=== PATIENT | male | born 1960 | race Caucasian/White ===

== ENCOUNTER 2025-03-30 11:29 | Day surgery (SDC) | payer OTHER ==
[2025-03-30] VITALS (8 sets, daily range): BP systolic 129–163; BP diastolic 74–101
[~2025-03-30] VITALS: Ht 180.3 cm; Wt 130.9 kg
[2025-03-30] MEDS ORDERED: INSULANI SC (12:40)
[2025-03-30] MEDS ORDERED: HUMALOG100 UNIT/1 SC (12:40)
[2025-03-30] MEDS ORDERED: EpiNEPhrine 1 MG/1 ML 1ML Vial ONE (12:41)
[2025-03-30] MEDS ORDERED: Phenylephrine 0.5% Nasal Spray/Drops 15 ML ONE (12:41)
[2025-03-30] MEDS ORDERED: Lidocaine 2% Jelly Uro-Jet ONE (12:41)
[2025-03-30] MEDS ORDERED: ALBU90OI INH (12:42)
[2025-03-30] MEDS ORDERED: AIRDUO RESPICL1 EAC1 INH (12:44)
[2025-03-30] MEDS ORDERED: OMEP20ER PO (12:44)
[2025-03-30] MEDS ORDERED: OZEMPIC0.25 MG/02 SC (12:44)
--- NOTE | 2025-03-30 13:40 | NUR ---
03/30/25 1339 Jaye Gallagher MONITOR INTACT WITH CONTINUOUS PULSE OXIMETRY, CONTINUOUS END TITAL CO2, 3-LEAD EKG AND INTERMITTENT BLOOD PRESSURE.
[2025-03-30] MEDS ORDERED: Ipratropium/Albuterol SulF 2.5-0.5MG/3 ML Amp ONE (14:27)
--- NOTE | 2025-03-30 17:48 | NUR ---
1420: TO STEP POST BRONCH. PINK TINGED PRODUCTIVE COUGH, SPO2 92-96% ON 3LO2 VIA NC. DUONED BORDERED PER DR. MCPHERSON. PT TO REMAIN IN STEP FOR 2 HOURS POST OP. REPORTS SCRATCHY THROAT AND BASELINE RESPIRATORY STATUS. 1530: TITRATED O2 TO 2LO2. ERVIN WELL. CONT TO HAVE PINK TINGED SPUTUM, IMPROVING. 1615: DC'D IV INTACT. DRESSED AT BEDSIDE WITH SPOUSE. DC'D IV INTACT. DC'D VIA WC TO PRIVATE CAR WITH VEHICLE BODY MAKER. VERBALIZED UNDERSTANDING OF DC INSTRUCTIONS/FOLLOW UP/MEDICATIONS.
== END 2025-03-30 23:00 | disposition home or self-care (01) ==
LOC: ORSCMMR 11:29 → ORD 12:30 → ORSCMMR 23:00
PROVIDERS: Internal Medicine Critical Care Medicine
PROC: 0BBD8ZX Excision of Right Middle Lung Lobe, Via Natural or Artificial Opening Endoscopic, Diagnostic (ICD-10-PCS; principal; 2025-03-30 12:30)
DX: R91.8 Other nonspecific abnormal finding of lung field (principal); C7A.090 Malignant carcinoid tumor of the bronchus and lung; J44.9 Chronic obstructive pulmonary disease, unspecified; Z87.891 Personal history of nicotine dependence; G47.33 Obstructive sleep apnea (adult) (pediatric); E11.9 Type 2 diabetes mellitus without complications; F41.9 Anxiety disorder, unspecified; E66.01 Morbid (severe) obesity due to excess calories; Z68.41 Body mass index [BMI] 40.0-44.9, adult
CPT/HCPCS: 82947; 87070; 87205; 88108; 88305; 88341; 88342; A9270; J0169; J2704; J7120